=== PATIENT | male | born 1995 | race Caucasian/White ===

== ENCOUNTER 2022-10-29 21:08 | Emergency (ER) | payer OTHER, SELFPAY ==
[2022-10-29 21:14] VITALS: BP 144/84; PULSE 83; RESP 16; TEMP 36.6; O2SAT 98; BMI 28.1
--- NOTE | 2022-10-29 21:38 | PC.NURSE ---
Visual Acuity, OS-20/40 OD-20/40 OU- 20/30 with glasses
--- NOTE | 2022-10-29 21:41 | ED.EYEPROB1 ---
HPI - Eye Problem General Chief complaint: Eye Problems Stated complaint: EYE Time Seen by Provider: 10/29/22 21:40 Source: patient Mode of arrival: walk-in Limitations: no limitations History of Present Illness HPI Narrative: discomfort of both eyes for past week. Tonight took Qtip that he dip in contact solution and used it to clean the lower eyelid. did experience some burning discomfort and decided he should come in. No vision loss . No drainage. No associated headache Related Data Home Medications Medication Instructions Recorded Confirmed diphenhydramine HCl 25 mg capsule 25 mg PO Q8H PRN allergy symptoms 10/29/22 10/29/22 (Aler-Cap) Allergies Allergy/AdvReac Type Severity Reaction Status Date / Time No Known Drug Allergies Allergy Verified 10/29/22 21:20 Review of Systems ROS Status of ROS 10 or more systems reviewed and unremarkable except as noted in history and below [facility] Social History Smoking status: Never smoker Exam Constitutional Vital Signs - 24 hr 10/29/22 21:14 Temperature 98 F Pulse Rate [Monitor] 83 Respiratory Rate 16 Blood Pressure [Left Arm] 144/84 H Pulse Oximetry 98 Oxygen Delivery Method Room Air Common normals: no apparent distress, average body habitus, oriented x3, no limitations and healthy appearing HENNM Common normals: normocephalic Eye Common normals: PERRL and EOMs intact bilaterally Other: mild injection bilat eyes. No drainage. No swelling Chest Common normals: inspection of chest normal Respiratory Common normals: normal respiratory effort, no retractions and no use of accessory muscles Cardio Common normals: regular rate, regular rhythm, S1 normal heart sound and S2 normal heart sound Extremity Common normals: normal to inspection, full ROM, normal capillary refill, no joint enlargement and no clubbing, cyanosis or edema Neuro Common normals: oriented x3 and CN's II-XII intact bilaterally Psych Appearance: grossly normal Course Vital Signs Vital signs: Vital Signs Temperature 98 F 10/29/22 21:14 Pulse Rate 83 10/29/22 21:14 Respiratory Rate 16 10/29/22 21:14 Blood Pressure 144/84 H 10/29/22 21:14 Pulse Oximetry 98 10/29/22 21:14 Oxygen Delivery Method Room Air 10/29/22 21:14 Temperature 98 F 10/29/22 21:14 Pulse Rate 83 10/29/22 21:14 Respiratory Rate 16 10/29/22 21:14 Blood Pressure 144/84 H 10/29/22 21:14 Pulse Oximetry 98 10/29/22 21:14 Oxygen Delivery Method Room Air 10/29/22 21:14 MDM - Eye Problem MDM Narrative Medical decision making narrative: patient presents with complaint of eye irritation for the past week. He decided to wet a Q tip with lens solution to clean the inner lower lid of his eye. Developed burning sensation of the eye and now presents for evaluation. No vision complaints. His eyes are mildly injected on exam but otherwise appear normal DD: conjunctivitis, conjunctiva irritation, allergic conjunctitvitis Discharge Plan Discharge Chief Complaint: Eye Problems Clinical Impression: Conjunctivitis Patient Disposition: Home, Self-Care Prescriptions / Home Meds: No Action diphenhydramine HCl [Aler-Cap] 25 mg capsule 25 mg PO Q8H PRN (Reason: allergy symptoms) Instructions: Conjunctivitis (ED) Stand Alone Forms: Portal Instructions Referrals: Physician,Non-Staff, MD [Primary Care Provider] - 1 week Follow Up Appointments: have eyes rechecked in the next couple of days
[2022-10-29] MEDS: TOBRAMYCIN/DEXAMETHASONE 0.3%/0.1% OP SUSP 50 DROP/2.5 ML BOTTLE 2 ML OP (22:52)
== END 2022-10-29 22:24 | disposition home or self-care (01) ==
PROVIDERS: Emergency Provider Internal Medicine
DX: H10.9 Unspecified conjunctivitis (principal)
CPT/HCPCS: 99283